=== PATIENT | female | born 1940 | race Caucasian/White ===

== ENCOUNTER 2019-04-19 16:00 | Outpatient (CLI) | payer MEDICARE, BC | END 2019-04-19 16:01 | disposition home or self-care (01) | LOC: SLEEPLAB 16:00 | PROVIDERS: ATTEND Internal Medicine | DX: G47.33 Obstructive sleep apnea (adult) (pediatric) (principal); I10 Essential (primary) hypertension | CPT/HCPCS: 95806 ==

== ENCOUNTER 2019-05-06 08:35 | Outpatient (CLI) | payer MEDICARE, BC ==
--- NOTE | 2019-05-06 11:27 | BD ---
DEXA BONE DENSITY STUDY: Date: 05/06/19 HISTORY: Postmenopausal. FINDINGS: Lumbar Spine: BMD (g/cm2) L1 1.010 T-Score: +0.2 L2 1.059 T-Score: +0.3 L3 1.137 T-Score: +0.5 L4 1.145 T-Score: _0.8 Total 1.098 T-Score: +0.5 Left Femoral Neck: 0.629 T-Score: -2.0 Total Femur: 0.91 T-Score: -0.2 IMPRESSION: 1. Osteopenia of the left femoral neck and normal bone mineral density of the lumbar spine. 2. 10 year fracture risk for major osteoporotic fracture is 26% and for hip fracture is 7.2%. These fracture probabilities are calculated for an untreated patient. POS: [facility]
== END 2019-05-06 08:36 | disposition home or self-care (01) ==
LOC: BICMAMMO 08:35
PROVIDERS: ATTEND Obstetrics & Gynecology
DX: Z13.820 Encounter for screening for osteoporosis (principal); M81.0 Age-related osteoporosis without current pathological fracture; M85.852 Other specified disorders of bone density and structure, left thigh; Z98.890 Other specified postprocedural states
CPT/HCPCS: 77080

== ENCOUNTER 2019-05-27 20:30 | Outpatient (CLI) | payer MEDICARE, BC | END 2019-05-27 20:31 | disposition home or self-care (01) | LOC: SLEEPLAB 20:30 | PROVIDERS: ATTEND Internal Medicine | DX: G47.33 Obstructive sleep apnea (adult) (pediatric) (principal); G47.61 Periodic limb movement disorder; R09.02 Hypoxemia | CPT/HCPCS: 95811 ==

== ENCOUNTER 2019-12-25 05:57 | Day surgery (SDC) | payer MEDICARE, BC ==
[2019-12-24 09:51] VITALS: BMI 29.8
--- NOTE | 2019-12-25 09:39 | OP ---
DATE OF PROCEDURE: 12/25/2019 PROCEDURE PERFORMED: Esophagogastroduodenoscopy with dilation. INDICATIONS FOR PROCEDURE: Dysphagia, history of esophageal food impaction with esophageal stricture. DESCRIPTION OF PROCEDURE: After the risks and benefits of the procedure were explained to the patient including risks of bleeding, infection, perforation, reactions to anesthesia, aspiration, and/or pain, informed consent was obtained. The patient was then taken to the endoscopy suite and placed in the left lateral decubitus position followed by administration of deep sedation via propofol and anesthesia support. Once adequate sedation was achieved, the standard gastroscope was introduced into the mouth with intubation of the esophagus, stomach, and the proximal small intestines with the findings listed below. The patient tolerated the procedure well with no immediate perioperative complications. Upon conclusion of the procedure, all equipments were removed from the patient and she was transferred to Day Stay in satisfactory condition. FINDINGS: Esophagus: Normal-appearing mucosa was seen in the proximal, mid, and distal esophagus. A nonobstructive circumferential fibrous ring was seen at the distal esophagus at approximately 38 cm past the incisors. This was easily traversed with the standard gastroscope. Given her history of food bolus impaction, this stricture was then dilated using a CRE TTS esophageal balloon, starting at 15 mm and a maximum diameter at 18 mm. After this maneuver was completed, the stricture was re-evaluated with no significant change or mucosal rent noted. The diaphragmatic pinch was seen at approximately 40 cm while the gastroesophageal junction was seen at 38 cm, denoting a 2 cm hiatal hernia. Otherwise, there was no evidence of erosions, ulcerations, mass lesions, or active/recent bleeding. Stomach: Normal-appearing mucosa was seen in the gastric cardia, fundus, body, greater curvature, antrum, and incisura. There was no evidence of erosions, ulcerations, mass lesions, or active/recent bleeding. Duodenum: Normal-appearing mucosa was seen in both the duodenal bulb and second portion of the duodenum. There was no evidence of erosions, ulcerations, mass lesions, or active/recent bleeding. IMPRESSION: 1. 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 2. 2 cm hiatal hernia. 3. Otherwise normal upper endoscopy. RECOMMENDATIONS: 1. Would continue the patient on omeprazole 40 mg daily for acid reflux and consider weaning the patient down to 20 mg at the next clinic visit. 2. Encourage the patient to adequately chew her food before swallowing. 3. Maintain standard acid reflux precautions. 4. Would have the patient follow up in the GI Clinic in 6 weeks for re-evaluation of her dysphagia in addition to irregular bowel movements. Job ID: [id number]
[2019-12-25] MEDS ORDERED: PROPOFOL 200 MG/20 ML VIAL ONE (09:49)
== END 2019-12-25 08:45 | disposition home or self-care (01) ==
LOC: SDC 05:57
PROVIDERS: ATTEND Internal Medicine
PROC: 0D758ZZ Dilation of Esophagus, Via Natural or Artificial Opening Endoscopic (ICD-10-PCS; principal; 2019-12-25)
DX: K22.2 Esophageal obstruction (principal); K44.9 Diaphragmatic hernia without obstruction or gangrene; I10 Essential (primary) hypertension; E78.5 Hyperlipidemia, unspecified; G47.30 Sleep apnea, unspecified; J18.9 Pneumonia, unspecified organism; Z79.899 Other long term (current) drug therapy; Z88.1 Allergy status to other antibiotic agents; Z88.2 Allergy status to sulfonamides; Z88.8 Allergy status to other drugs, medicaments and biological substances; Z91.013 Allergy to seafood; Z91.040 Latex allergy status; Z99.89 Dependence on other enabling machines and devices
CPT/HCPCS: J2704

== ENCOUNTER 2025-08-18 12:18 | Observation (INO) | payer BC, MEDICARE ==
[~2025-08-18 12:18] MED LIST: Iopamidol-370 76% 500 ML MDV (1 ML CHARGE) ONE
[2025-08-18 13:37] LABS: #Basophils 0.08 10x3/uL (0.0-0.2); #Eosinophils 0.25 10x3/uL (0.0-0.7); #Monocytes 0.47 10x3/uL (0.11-0.59); #Neutrophils 5.22 10x3/uL (1.40-6.50); %Basophils 1.0 % (0.0-1.0); %Eosinophils 3.1 % (0.0-10.0); %Lymphocytes 24.5 % (21.0-51.0); %Monocytes 5.9 % (0.0-10.0); %Neutrophils 65.2 % (42.0-75.0); Hematocrit 40.5 % (36.0-47.0); Hemoglobin 12.9 g/dL (12.0-16.0); Mean Corpuscular Hemoglobin 29.2 pg (27.0-31.0); Mean Corpuscular Volume 91.6 fL (78.0-98.0); Platelet Count 214 10x3/uL (130-400); Red Blood Cell (RBC) Count 4.42 mill/uL (4.20-5.40); White Blood Cell (WBC) Count 8.00 10x3/uL (4.8-10.8)
[2025-08-18 13:44] LABS: ALT (SGPT) 22 U/L (Less than 34); AST (SGOT) 48 U/L (11-34); Albumin 4.0 g/dL (3.1-4.5); Alkaline Phosphatase 65 U/L (40-110); Anion Gap 15 mmol/L (10-20); BUN (Urea Nitrogen) 20 mg/dL (9.8-20.1); Bilirubin, Total 0.3 mg/dL (0.3-1.2); Calc. Creatinine Clearance 0 mL/min (70-130); Calcium 9.0 mg/dL (7.8-10.44); Carbon Dioxide 20 mmol/L (23-31); Chloride 107 mmol/L (98-107); Globulin 3.8 g/dL (2.4-3.5); Glucose 109 mg/dL (83-110); Potassium 4.3 mmol/L (3.5-5.1); Sodium 138 mmol/L (136-145)
[2025-08-18] MEDS ORDERED: Guaifenesin DM 100-10/5 ML UDCUP PO PRN (16:26)
[2025-08-18] MEDS ORDERED: Ondansetron PF 4 MG/2 ML Vial IVP PRN (16:26)
[2025-08-18] MEDS ORDERED: Nitroglycerin 0.4 MG TAB (25 Tab Bottle) SL PRN (16:26)
[2025-08-18] MEDS ORDERED: Electrolyte Replacement Protocol 1 EACH FS SCH (16:30)
[2025-08-18] MEDS ORDERED: Dextrose 50% Abboject 50 ML SYRINGE SLOW IVP PRN (16:31)
[2025-08-18] MEDS ORDERED: Glucagon 1 MG/ML KIT IM PRN (16:31)
[2025-08-18] MEDS ORDERED: Enoxaparin 40 MG (0.4 mL) SYRINGE ONE (17:11)
[2025-08-18 17:25] VITALS: BMI 28.3
[2025-08-18] MEDS: Enoxaparin 40 MG (0.4 mL) SYRINGE SC SCH (18:52)
[2025-08-19 02:19] LABS: #Basophils 0.07 10x3/uL (0.0-0.2); #Eosinophils 0.26 10x3/uL (0.0-0.7); #Monocytes 0.41 10x3/uL (0.11-0.59); #Neutrophils 4.23 10x3/uL (1.40-6.50); %Basophils 1.0 % (0.0-1.0); %Eosinophils 3.7 % (0.0-10.0); %Lymphocytes 29.6 % (21.0-51.0); %Monocytes 5.8 % (0.0-10.0); %Neutrophils 59.8 % (42.0-75.0); Hematocrit 38.4 % (36.0-47.0); Hemoglobin 12.1 g/dL (12.0-16.0); Mean Corpuscular Hemoglobin 29.6 pg (27.0-31.0); Mean Corpuscular Volume 93.9 fL (78.0-98.0); Platelet Count 200 10x3/uL (130-400); Red Blood Cell (RBC) Count 4.09 mill/uL (4.20-5.40); White Blood Cell (WBC) Count 7.07 10x3/uL (4.8-10.8)
[2025-08-19 03:12] LABS: ALT (SGPT) 16 U/L (Less than 34); AST (SGOT) 28 U/L (11-34); Albumin 3.3 g/dL (3.1-4.5); Alkaline Phosphatase 56 U/L (40-110); Anion Gap 16 mmol/L (10-20); BUN (Urea Nitrogen) 25 mg/dL (9.8-20.1); Bilirubin, Total 0.3 mg/dL (0.3-1.2); Calc. Creatinine Clearance 32 mL/min (70-130); Calcium 8.6 mg/dL (7.8-10.44); Carbon Dioxide 22 mmol/L (23-31); Cardiac Risk 4.7 (Less than 4.5); Chloride 107 mmol/L (98-107); Cholesterol 135 mg/dl (< 200 Desired); Globulin 2.9 g/dL (2.4-3.5); Glucose 114 mg/dL (83-110); HDL Cholesterol 29 mg/dL (>60 Neg Risk); LDL Cholesterol, Calculated 55 mg/dL; Potassium 3.8 mmol/L (3.5-5.1); Sodium 141 mmol/L (136-145); Triglycerides 256 mg/dL (Less than 150)
[2025-08-19 08:53] VITALS: TEMP 98
[2025-08-19] MEDS: Aspirin Chewable 81 MG TAB PO SCH (09:00)
[2025-08-19] MEDS: Pantoprazole 40 MG DR.TAB PO SCH (09:00)
[2025-08-19] MEDS: Enoxaparin 30 MG (0.3 mL) SYRINGE SC SCH (09:00)
[2025-08-19] MEDS: FLU (Fluad Triv) 25-26 (65UP)PF 45 MCG/0.5 ML Syringe IM ONE (16:13)
[2025-08-19] MEDS: PNEUMOC 20-VAL CONJ-DIP CRM/PF 0.5 ML SYRINGE IM ONE (16:15)
[2025-08-19 17:06] VITALS: BP 122/60
== END 2025-08-19 17:40 | disposition home or self-care (01) ==
LOC: ERS 12:18 → ERHOLD 16:09 → OBS 08-19 00:44
PROVIDERS: ADMIT Internal Medicine; ATTEND Internal Medicine
DX: R07.2 Precordial pain (principal); I10 Essential (primary) hypertension; E11.9 Type 2 diabetes mellitus without complications; E78.5 Hyperlipidemia, unspecified; Z91.040 Latex allergy status; Z91.013 Allergy to seafood; Z88.2 Allergy status to sulfonamides; Z88.8 Allergy status to other drugs, medicaments and biological substances; Z88.5 Allergy status to narcotic agent; Z88.1 Allergy status to other antibiotic agents; Z91.018 Allergy to other foods; Z79.84 Long term (current) use of oral hypoglycemic drugs; Z79.899 Other long term (current) drug therapy
CPT/HCPCS: 71045; 71275; 78452; 80053 ×2; 80061; 82962; 84484 ×3; 85025 ×2; 85379; 93005; 93017; A9502; J1650; J2785 ×2; 36415; 36416; 96372; G0378; Q9967